=== PATIENT | female | born 1940 | race Caucasian/White ===

== ENCOUNTER → 2016-12-23 | Outpatient (CLI) | payer OTHER | LOC: FIMAGING 11:24 | DX: Z12.31 Encounter for screening mammogram for malignant neoplasm of breast (principal); Z85.3 Personal history of malignant neoplasm of breast | CPT/HCPCS: G0202-52 ==

== ENCOUNTER → 2017-12-26 | Outpatient (CLI) | payer OTHER, BC | LOC: FIMAGING 13:29 | PROVIDERS: ATTEND Family Medicine | DX: Z12.31 Encounter for screening mammogram for malignant neoplasm of breast (principal); Z85.3 Personal history of malignant neoplasm of breast; Z90.11 Acquired absence of right breast and nipple ==

== ENCOUNTER 2018-05-27 11:32 | Observation (INO) | payer OTHER, BC ==
--- NOTE | 2018-05-27 12:40 | EDPHY ---
H & P Stated Complaint: Lt arm numbness yesterday lasted approx 1 hour. No C/o today Time Seen by Provider: 05/27/18 12:27 HPI/ROS: Chief Complaint: Left arm numbness HPI: 77-year-old woman with no significant medical history had an episode 2 days ago of numbness in her left forearm and inability to use her left hand. This lasted for about 5 min. Started while she was vacuuming. She is right- handed. She then returned to normal. Patient had another episode yesterday which lasted about the same amount of time. She does not recall what she was doing at that time. She has not had any symptoms for the last 24 hr. She called her primary care physician's office who instructed her to come to the hospital. Patient states her grandfather of a stroke years ago. Denies any other medical history. Takes no medicines. No recent travel. No other numbness or weakness. No chest pain shortness of breath. No fevers or chills. No cough. ROS: 10 systems were reviewed and were negative except those elements noted in the HPI. PMH: Denies Social History: No smoking, occasional alcohol, no recreational drug use Family History: non-contributory Physical Exam: Gen: Awake, Alert, No Distress HEENT: Nose: no rhinorrhea Eyes: PERRLA, EOMI Mouth: Moist mucosa Neck: Supple, no JVD Chest: nontender, lungs clear to auscultation Heart: S1, S2 normal, no murmur Abd: Soft, non-tender, no guarding Back: no CVA tenderness, no midline tenderness Ext: no edema, non-tender Skin: no rash Neuro: CN II-XII intact, Sensation grossly intact, Strength 5/5 in bilateral upper and lower extremities, normal finger-nose, normal heel-valdes, no facial asymmetry - Personal History Current Tetanus/Diphtheria Vaccine: Yes Current Tetanus Diphtheria and Acellular Pertussis (TDAP): Yes - Medical/Surgical History Hx Asthma: No Hx Chronic Respiratory Disease: No Hx Diabetes: No Hx Cardiac Disease: No Hx Renal Disease: No Hx Cirrhosis: No Hx Alcoholism: No Hx HIV/AIDS: No Hx Splenectomy or Spleen Trauma: No Other PMH: Breast CA - Social History Smoking Status: Never smoked Constitutional: Initial Vital Signs Temperature (C) 36.7 C 09/08/18 11:39 Heart Rate 70 05/27/18 11:39 Respiratory Rate 16 05/27/18 11:39 Blood Pressure 171/85 H 05/27/18 11:39 O2 Sat (%) 93 05/27/18 11:39 O2 Delivery Mode Room Air Allergies/Adverse Reactions: No Known Allergies Allergy (Unverified 05/27/18 11:39) Home Medications: Medication Instructions Recorded Herbals/Supplements -Info Only 1 ea PO DAILY 05/27/18 Multivitamins [Multivitamin (*)] 1 each PO DAILY 05/27/18 Medical Decision Making - Diagnostics Imaging: Discussed imaging studies w/ mail caller Radiologist ED Course/Re-evaluation: CT scan is negative. Patient is asymptomatic. Discussed with Claudine Farrar, hospitalist. Will admit for further evaluation. She is requesting CT angiogram of the head neck. - Data Points Laboratory Results: Laboratory Results 05/27/18 11:35 05/27/18 11:35 Medications Given: Discontinued Medications Aspirin Buffered (Aspirin Ec) 325 mg PO DAILY [facility] Stop: 11/23/18 14:29 Last Admin: 05/27/18 17:35 Dose: Not Given Lisinopril (Zestril) 2.5 mg PO DAILY [facility] Stop: 11/23/18 16:44 Last Admin: 05/28/18 09:31 Dose: Not Given Multivitamins (Tab-A-Liang) 1 each PO DAILY [facility] Stop: 11/24/18 08:59 Last Admin: 05/28/18 09:31 Dose: Not Given Departure - Departure Disposition: [facility] Acute Clinical Impression: Transient cerebral ischemia Condition: Fair
[2018-05-27 12:47] LABS: PLATELET COUNT 253 10^3/uL (150-400)
[2018-05-27] MEDS ORDERED: IOPAMIDOL (ISOVUE 370) 100 ML BTL IV ONE (13:59)
[2018-05-27] MEDS ORDERED: ACETAMINOPHEN 325 MG TAB PO PRN (14:10)
[2018-05-27] MEDS ORDERED: ONDANSETRON 4 MG/2 ML VIAL IVP PRN (14:10)
[2018-05-27] MEDS ORDERED: ONDANSETRON DISINTEGRATING 4 MG TAB PO PRN (14:10)
[2018-05-27] MEDS ORDERED: ASPIRIN EC 325 MG TAB PO SCH (14:30)
--- NOTE | 2018-05-27 14:47 | PDGENHP ---
History and Physical - Chief Complaint Acute paresthesia - History of Present Illness Primary care provider: Dr. Kalpesh Lazar HPI: 77-year-old female presents with acute paresthesias characterized as unusual sensation located on the ventral aspect of her left forearm extending from the elbow to the wrist, with associated left hand paresis and difficulty moving digits 3 and 4. Patient reports onset of symptoms 2 days prior, duration of symptoms approximately 5 min. She reports it occurred while she was vacuuming and she does not recall sustaining any trauma to the left upper extremity or sleeping on improperly. After the resolution of symptoms, she re- experience them 1 day following that, and has been 24 hr since she has experienced symptoms at this time. She contacted her primary care provider office seeking an outpatient appointment, and she was instructed to come to the emergency department. She reports that she has never experienced these physical symptoms before, and she denies any posterior neck pain or headache. She does endorse that further past couple months she has experienced word- finding difficulty, pervasive enough that she is unable to recall the names of friends or places where she has lived. History Information - Allergies/Home Medication List Allergies/Adverse Reactions: No Known Allergies Allergy (Unverified 05/27/18 11:39) Home Medications: Aspirin [Aspirin 81mg (*)] 81 mg PO Q2D 05/27/18 [Last Taken 05/25/18] Herbals/Supplements -Info Only 1 ea PO DAILY 05/27/18 [Last Taken Unknown] Ibuprofen [Motrin (*)] 200 - 400 mg PO Q4-6PRN PRN 05/27/18 [Last Taken Unknown] Multivitamins [Multivitamin (*)] 1 each PO DAILY 05/27/18 [Last Taken Unknown] I have personally reviewed and updated: family history, medical history, social history, surgical history - Past Medical History hypertension Additional medical history: Skin cancer left side of nose. Breast cancer with radiation therapy 10 years ago - Surgical History Additional surgical history: Umbilical hernia repair - Family History Additional family history: Second-degree relative with stroke, no family history of myocardial infarction or cerebral aneurysms - Social History Smoking Status: Never smoked Alcohol Use: Occasionally Drug Use: None Additional social history: Lives independently, relocated to [place] from [place] 2 years ago to be closer to family Review of Systems Review of Systems: ROS: 10pt was reviewed & negative except for what was stated in HPI & below Neurological: Reports: other (Paresthesias and paresis left upper extremity, word-finding difficulty) Physical Exam Physical Exam: Temp Pulse Resp BP Pulse Ox 36.7 C 70 16 171/85 H 93 05/27/18 11:39 05/27/18 11:39 05/27/18 11:39 05/27/18 11:39 05/27/18 11:39 Constitutional: no apparent distress, appears nourished, not in pain Eyes: PERRL, anicteric sclera, EOMI Ears, Nose, Mouth, Throat: moist mucous membranes, hearing normal, ears appear normal, no oral mucosal ulcers Cardiovascular: regular rate and rhythym, no murmur, rub, or gallop, No carotid bruit, No edema Respiratory: no respiratory distress, no rales or rhonchi, clear to auscultation Gastrointestinal: normoactive bowel sounds, soft, non-tender abdomen, no palpable masses, No distension Genitourinary: no renal bruits Skin: No abrasion (Left upper extremity), No rash Musculoskeletal: other (Full range of motion left wrist and left elbow without any pain elicited) Neurologic: CN II-XII Intact, other (Subjective paresthesia ventral surface left upper extremity, alert awake oriented times 2, patient unable to say her location, demonstrates significant word-finding difficulty and distress with good insight), No weakness (Motor strength 5/5 bilateral upper and lower extremities) Psychiatric: interacting appropriately, not anxious, No agitated Lab Data & Imaging Review 05/27/18 11:35 05/27/18 11:35 WBC 5.17 10^3/uL (3.80-9.50) 05/27/18 11:35 RBC 5.14 10^6/uL (4.18-5.33) 05/27/18 11:35 Hgb 15.3 g/dL (12.6-16.3) 05/27/18 11:35 Hct 44.5 % (38.0-47.0) 05/27/18 11:35 MCV 86.6 fL (81.5-99.8) 05/27/18 11:35 MCH 29.8 pg (27.9-34.1) 05/27/18 11:35 MCHC 34.4 g/dL (32.4-36.7) 05/27/18 11:35 RDW 13.3 % (11.5-15.2) 05/27/18 11:35 Plt Count 253 10^3/uL (150-400) 05/27/18 11:35 MPV 8.8 fL (8.7-11.7) 05/27/18 11:35 Neut % (Auto) 66.7 % (39.3-74.2) 05/27/18 11:35 Lymph % (Auto) 22.8 % (15.0-45.0) 05/27/18 11:35 [place] % (Auto) 6.8 % (4.5-13.0) 05/27/18 11:35 Eos % (Auto) 2.5 % (0.6-7.6) 05/27/18 11:35 Baso % (Auto) 0.8 % (0.3-1.7) 05/27/18 11:35 Nucleat RBC Rel Count 0.0 % (0.0-0.2) 05/27/18 11:35 Absolute Neuts (auto) 3.45 10^3/uL (1.70-6.50) 05/27/18 11:35 Absolute Lymphs (auto) 1.18 10^3/uL (1.00-3.00) 05/27/18 11:35 Absolute Monos (auto) 0.35 10^3/uL (0.30-0.80) 05/27/18 11:35 Absolute Eos (auto) 0.13 10^3/uL (0.03-0.40) 05/27/18 11:35 Absolute Basos (auto) 0.04 10^3/uL (0.02-0.10) 05/27/18 11:35 Absolute Nucleated RBC 0.00 10^3/uL (0-0.01) 05/27/18 11:35 Immature Gran % 0.4 % (0.0-1.1) 05/27/18 11:35 Immature Gran # 0.02 10^3/uL (0.00-0.10) 05/27/18 11:35 Sodium 140 mEq/L (135-145) 05/27/18 11:35 Potassium 4.5 mEq/L (3.3-5.0) 05/27/18 11:35 Chloride 104 mEq/L (97-110) 05/27/18 11:35 Carbon Dioxide 28 mEq/l (22-31) 05/27/18 11:35 Anion Gap 8 mEq/L (8-16) 05/27/18 11:35 BUN 24 mg/dL (7-23) H 05/27/18 11:35 Creatinine 0.9 mg/dL (0.6-1.0) 05/27/18 11:35 Estimated GFR 60 05/27/18 11:35 Glucose 88 mg/dL (70-100) 05/27/18 11:35 Calcium 10.1 mg/dL (8.5-10.4) 05/27/18 11:35 Visualized and Interpreted imaging results: Yes Interpretation: Head CT demonstrating atrophy, no previous CVA Assessment & Plan Assessment: 77-year-old female presents with acute paresthesias and paresis suggestive of TIA versus CVA Plan: 1. Paresis and paresthesia. Acute, new problem this provider, further workup indicated. Potential diagnoses include TIA versus CVA versus a posterior cervical cord compression, given the patient's present and persistent nature of word-finding difficulties, I suspect the patient may have experienced subacute CVA, but dementia is also within the differential, particularly if she were to have vascular dementia -patient declined head CT with IV contrast but she has elected for MRA of head and neck, MRI -she is agreeable to echocardiogram -lipid panel, hemoglobin A1c -monitor on telemetry given potential for predisposing AFib, with patient reporting a history of right chest palpitations evaluated by her PCP but no formal cardiology evaluation the outpatient setting -aspirin 325 -get neuro consultation tomorrow after above studies obtained 2. High blood pressure. Patient denies history of hypertension, her systolic blood pressure is currently 170, will monitor, may be elevated in the setting of CVA Diet. Regular after swallow eval Prophylaxis. High risk patient, SCDs, hold pharm given possible CVA Code. Full Disposition. Anticipated discharge is 05/28, pending further workup of above. Patient's case discussed with Dr. Federico Laguerre, he and I both agree that further neurovascular workup is appropriate.
[2018-05-27] MEDS ORDERED: GADOBUTROL 10 ML VIAL IVP ONE (15:10)
[2018-05-27] MEDS: LISINOPRIL 2.5 MG TAB PO SCH (17:30)
--- NOTE | 2018-05-27 20:50 | CPEKG ---
Test Reason : OPEN Blood Pressure : / mmHG Vent. Rate : 074 BPM Atrial Rate : 063 BPM P-R Int : 212 ms QRS Dur : 113 ms QT Int : 428 ms P-R-T Axes : 071 057 023 degrees QTc Int : 475 ms Sinus rhythm Ventricular premature complex Borderline prolonged MO interval Probable left atrial enlargement Nonspecific T abnormalities, anterior leads Nonspecific intraventricular conduction delay Confirmed by Rishi White ([id number]) on 05/27/2018 8:50:25 PM Referred By: Confirmed By:Rishi White
[2018-05-28 08:41] VITALS: BP 132/71
[2018-05-28] MEDS ORDERED: Herbals/Supplements -Info Only PO SCH (09:00)
[2018-05-28] MEDS ORDERED: MULTIVITAMINS 1 EACH TAB PO SCH (09:00)
[2018-05-28] MEDS: LISINOPRIL 2.5 MG TAB PO SCH (09:31)
--- NOTE | 2018-05-28 11:11 | PDCONSULT ---
[facility] Worker Note: PATIENT LEFT AGAINST MEDICAL ADVICE (AMA) BECAUSE OF THIS, I WAS UNABLE TO EVALUATE HER
--- NOTE | 2018-05-28 11:42 | GCON ---
DATE OF CONSULTATION: 05/28/2018 REASON FOR CONSULTATION: Acute paraesthesias and confusion, with new cranial petechial hemorrhages noted. HOSPITAL COURSE/HISTORY/MAJOR MEDICAL FINDINGS: The patient is a 77-year-old female, from whom some of this has been taken from the patient's medical record as the patient has had some confusion this morning and states that she does not fully understand why she was asked to come to the hospital. Per her record, the patient was having some acute paresthesias in her left arm extending from her elbow to her wrist. This had been going on for approximately 2 days prior, and each time it would last about 5 minute. She states that this would occur when she was vacuuming and she denied any trauma. The patient does state that she contacted her primary care physician, and she was then directed to come to the emergency room. She had never experienced any arm numbness, tingling or pain prior to this. She denies any neck pain. She has also noticed that she has been having some word-finding difficulty. The patient denies any headaches , nausea, vomiting, or dizziness this morning. REVIEW OF SYSTEMS: Review of systems is negative other than what is stated in the HPI. Please see pertinent negatives and positives. HOME MEDICATIONS: Include aspirin, herbal supplements, ibuprofen, multivitamin. ALLERGIES: No known drug allergies. FAMILY HISTORY: Most of her family lives in [place]. She denies any history of cancer or diabetes. She does have someone in her family that has had a prior stroke. PAST SURGICAL HISTORY: The patient states that she had skin cancer removed from her nose recently and had an umbilical hernia repair. PAST MEDICAL HISTORY: Significant for the skin cancer as well as breast cancer with radiation and hypertension. SOCIAL HISTORY: The patient is originally from [facility] but she now lives independently here in [place]. She has never smoked and she has an occasional alcoholic beverage. PHYSICAL EXAMINATION: VITAL SIGNS: BP is 132/71, heart rate is 87, she is 91% on room air, temperature is 37.7. GENERAL: The patient is in no acute distress. She is alert and she is oriented to year, but throughout the conversation with the patient, she does perseverate and is not able to fully recall the full reason that she was sent to the hospital nor some detailed history questionnaires. She had tried to order breakfast; however, she states that when she called for breakfast that they were closed. All of her statements are not fully appropriate. HEENT: CHRISTO. EOMI. EXTREMITIES: The patient is a 5/5 and equal in her bilateral upper and bilateral lower extremities including her deltoids, triceps, biceps, wrist flexors, extensors, interossei, intrinsic baseball coach, iliopsoas, hamstrings, quadriceps, plantar flexion, dorsiflexion, and EHL. DIAGNOSTIC REVIEW: The patient underwent a head CT which demonstrated no acute hemorrhage or intracranial abnormality; there is atrophy and nonspecific white matter disease. There was evidence of a perivascular space versus old lacunar infarct present within the right basal ganglia. There was minimal focal encephalomalacia involving the low left paramedian frontal lobe. Brain MRI demonstrated multiple diffuse bilateral cerebral hemodesrin deposits consistent with subacute to old subarachnoid hemorrhages and cortical hemorrhages which may be relative to amyloid angiopathy. There is severe microvascular gliosis and moderate cerebral atrophy. MRA of the brain demonstrated findings that were consistent with the prior MRI. There was no evidence of aneurysm, vascular malformation, or flow-limiting stenosis or occlusion. Cervical MRA was also negative for any flow-limiting stenosis, occlusion or dissection. ASSESSMENT AND PLAN: The patient is a 77-year-old female who presented with some left arm intermittent paresthesias that would come and go. She is not having any of that this morning; she does have some confusion, however, that was noted throughout my lengthy conversation with the patient. There is evidence of some hemodesrin spots on her MRI which may be consistent with an amyloid angiopathy per the radiology reports. The patient was seen both by Dr. Armendariz and myself. At this point in time, there is no acute neurosurgical etiology, no acute neurosurgical treatment recommended; would recommend neurology evaluation for further workup. PT, OT, and SUSHI CHEF cog evaluations. The patient was seen by both Dr. Armendariz and myself. /[id number]/MODL MTDD
--- NOTE | 2018-05-28 16:08 | PDDCSUM ---
Discharge Summary Discharge Summary: DISCHARGE SUMMARY FOLLOW-UP ITEMS: 1. Perform mini-mental status exam as an outpatient PCP office 2. Recommend driving exam and suspension of license until patient is able to perform 2. Recommend outpatient neurology consultation DATE OF ADMISSION: 05/27/2018 DATE OF DISCHARGE: 05/28/2018 DISCHARGE DIAGNOSES: 1. 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 Acute paresis, paresthesia, word-finding difficulties CONSULTATIONS: Neurosurgery, patient left prior to Neurology consultation PROCEDURES / IMAGING: Brain MRI demonstrating diffuse bilateral hemosiderin deposits potentially consistent with subacute or old subarachnoid hemorrhages without acute CVA MRA of head and neck demonstrating no cerebral aneurysms CHIEF COMPLAINT: Acute left upper extremity paresthesias and paresis with word-finding difficulty SUBJECTIVE: Patient became very distressed and paranoid, leaving against medical advice prior to neurology exam PHYSICAL EXAM ON DISCHARGE: Systolic blood pressure 130, heart rate 80, afebrile overnight, satting on room air, alert awake oriented times [address] and time but requiring prompting and demonstrating a very circuitous way of arriving at her answers; she has obvious word-finding difficulty, unable to name her address or City where she lives, but able to problem solve by getting into her purse and locating the address in 1 of her pocket books; moving all 4 extremities; facial symmetry; labile emotions, seemingly paranoid, but demonstrates linear and directable thinking LABS ON DISCHARGE: LDL 124, A1c pending at time of discharge HOSPITAL COURSE BY PROBLEM: The patient presented with left upper extremity paresis and paresthesias of abrupt onset 3 days prior to presentation. She also reported word-finding difficulty which has been present for at least a month. She attempted to see her primary care provider, but was triaged to the emergency department for evaluation. The patient initially underwent a TIA versus CVA workup, and brain MRI demonstrated diffuse bilateral hemosiderin deposits potentially consistent with subacute or old subarachnoid hemorrhages. MRA of the head and neck were otherwise unremarkable. She was monitored on neuro checks, which demonstrated resolution of her paresthesias and paresis, but persistence of her word-finding difficulty as well as development of paranoia and distress out of proportion to the patient's situation. She became increasingly agitated and demanded to be discharged. I evaluated the patient and after an extensive conversation, I felt like she did have the capacity to make rational decisions, although her word-finding difficulty was present and pervasive on exam, revealing that she did have intact problem solving capabilities, as she would look for the words or answers to questions on collateral material such as her pocketbook which was in her purse. At the time of my evaluation, the patient was cooperative and agreed to a Neurology consultation prior to discharge, as I shared with her the diagnosis of subacute subarachnoid hemorrhages which could either be secondary to amyloid angiopathy verses vasculitis, as suggested by Neurosurgery. Assured with the patient that there was no recommended neurosurgical intervention, but that neurology evaluation was necessary to help her determine the next best steps. After agreeing to this consultation prior to discharge, the patient then subsequently decided to leave against medical advice, prior to the Neurology evaluation. My suspicion is that the patient has an amyloid angiopathy resulting in subacute subarachnoid hemorrhages, resulting in her aforementioned neurologic and personality symptoms. The patient endorsed that she has a sister in [facility] who has very similar symptoms, and it is certainly possible that there may be a genetic component. Although vasculitis is within the differential, the patient's normal CBC makes this diagnosis somewhat less likely. That said, she should have inflammatory markers and workup in the outpatient setting, if she is amenable to outpatient neurology consultation. She should also have close outpatient follow-up with a mini-mental status exam and consideration for the involvement of Adult protection Services if the patient decompensates further and appears to be unable to manage her situation independently. I would highly recommend the patient not be driving a motorized vehicle for her own safety and that of others, as she is at risk for losing her way and becoming easily overwhelmed. I would also highly recommend the patient stop taking aspirin every other day, as she does not have an absolute indication for this medication and she is at risk for worsening intracranial bleeding. It should be noted that I was unable to provide the patient with some of these aforementioned recommendations, as my intention had been to continue my conversation with the patient after she had been seen by Neurology, which was consultation she had agreed to during our encounter. Consequently, I recommend that the patient's primary care provider office reach out to the patient immediately to arrange outpatient follow-up and crisis intervention counselor her on these recommendations. DISCHARGE MEDICATIONS: Please see official discharge medication reconciliation sheet in chart , continue home medications with the exception of aspirin. DISCHARGE INSTRUCTIONS: Please follow up with her primary care provider as soon as possible.
== END 2018-05-28 10:31 | disposition left against medical advice (07) ==
LOC: EDUNIT# → F3N 16:19
PROVIDERS: ADMIT Internal Medicine; ATTEND Internal Medicine
DX: I60.7 Nontraumatic subarachnoid hemorrhage from unspecified intracranial artery (principal); G83.24 Monoplegia of upper limb affecting left nondominant side; R20.2 Paresthesia of skin; R41.841 Cognitive communication deficit; I10 Essential (primary) hypertension
CPT/HCPCS: 70450; 70544; 70549; 70551; 93005; 97161; 99285; A9585; G0378; G8978; G8979; G8980; Q9967

== ENCOUNTER 2018-05-29 17:45 | Observation (INO) | payer OTHER, BC ==
[2018-05-29 18:15] LABS: PLATELET COUNT 239 10^3/uL (150-400)
--- NOTE | 2018-05-29 18:38 | EDPHY ---
H & P Time Seen by Provider: 05/29/18 18:05 HPI/ROS: Chief complaint. Numbness HPI. Patient is 77-year-old female who with complaint of left arm, left fingers , tongue with altered sensation and numbness beginning at about 5:00 p.m. Today. It lasted maybe 1 hr. Symptoms have resolved. She thinks she was clumsy with her left hand and could not make a fist or worker seatbelt. Her son noted that her speech seemed to be slurred. She had no leg symptoms. No chest discomfort or trouble breathing. No abdominal pain. Patient was admitted for left arm numbness 2 days ago. She had a normal head C T. Brain MRI showed subacute to old subarachnoid hemorrhage and cortical hemorrhage but nonacute. There was also severe microvascular ischemic gliosis. Her head MRA was negative for the washoe of [place]. Her neck MRA showed no stenosis. She was evaluated by Neurosurgery who felt there was no need for neurosurgical intervention. Neurology consult was ordered however the patient left AMA prior to neurology evaluation. Discharge diagnosis was amyloid angiopathy and sub acute subarachnoid hemorrhages. She has no symptoms now ROS Constitutional. no fever/chills, no weakness Eyes. no problems with vision ENT. no sore throat, no nasal drainage Cardiovascular. no chest pain Respiratory. no shortness of breath, no cough Abdominal. no abdominal pain, no nausea/vomiting, no diarrhea . no problems urinating MS. no calf pain/swelling, no neck/back pain, no joint pain Skin. no rash Lymph. no swollen glands Neuro. Left arm and fingers and time numbness and potential weakness with the left hand Past Medical/Surgical History: Past medical history breast cancer, right mastectomy, TIA Social History: Single, nonsmoker, no alcohol Smoking Status: Never smoked Physical Exam: General Appearance: Alert pleasant well-developed female mild distress vital signs significant for blood pressure 167/107 Eyes: Pupils equal and round no pallor or injection. ENT, Mouth: Mucous membranes are moist. Respiratory: There are no retractions, lungs are clear to auscultation. Cardiovascular: Regular rate and rhythm. Gastrointestinal: Abdomen is soft and nontender, no masses, bowel sounds normal. Neurological: Awake and alert, sensory and motor exams grossly normal. No facial numbness now. Speech is normal. Cranial nerves are intact. There is no pronator drift. Jiliil-lv-yuce and vzpb-yp-[id number] are intact bilaterally Skin: Warm and dry, no rashes. Musculoskeletal: Neck is supple nontender. Extremities symmetrical, full range of motion. Psychiatric: Patient is oriented X 3, there is no agitation. Constitutional: Initial Vital Signs Temperature (C) 37.0 C 05/29/18 17:53 Heart Rate 67 05/29/18 17:53 Respiratory Rate 16 05/29/18 17:53 Blood Pressure 167/107 H 05/29/18 17:53 O2 Sat (%) 97 05/29/18 17:53 O2 Delivery Mode Room Air Allergies/Adverse Reactions: No Known Allergies Allergy (Unverified 05/27/18 11:39) Home Medications: Medication Instructions Recorded Herbals/Supplements -Info Only 1 ea PO DAILY 05/27/18 Multivitamins [Multivitamin (*)] 1 each PO DAILY 05/27/18 Aspirin 05/29/18 Medical Decision Making - Diagnostics EKG Interpretation: EKG interpreted by me shows normal sinus rhythm normal interval and axis. QRS is normal there is no significant ST elevation or depression. No arrhythmia. The rate is 66 Imaging Results: Imaging Impressions Head CT 05/29/18 18:38 Impression: Ventricular and deep hemispheric white matter change, which is stable in appearance and can be seen with small vessel ischemic disease. 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 No definite acute findings. Results called and discussed with Kris Bran M.D., on May 29, [address] reviewed by me and discussed with Dr. Jaramillo shows the no acute infarct or hemorrhage. Similar to 2 days ago. Procedures: IV normal saline, monitor ED Course/Re-evaluation: Re-evaluation 7:25 p.m. Patient again has facial and left arm numbness. I can' t demonstrate weakness. She also complains of some numbness and pain to her chest. I consulted discussed case with Dr. Gallagher for Neurology who agrees with admission and he will see the patient in consultation. He recommends no aspirin currently. He recommends gabapentin 300 mg. I consulted and discussed the case with Dr. Pardo, hospitalist, who agrees to the admission I have discussed imaging and lab results with the patient and her son. We discussed treatment plan including recommendation for admission. They expressed understanding Differential Diagnosis: Patient with TIA type symptoms 2 days ago and workup showing subacute subarachnoid hemorrhages. Patient left AMA prior to Neurology evaluation. Returns today with stuttering and continuing symptoms. No evidence for acute hemorrhage - Data Points Laboratory Results: Laboratory Results 05/29/18 17:45 05/29/18 17:45 05/29/18 05/29/18 05/29/18 19:22 18:06 17:45 WBC RBC Hgb POC Hgb 14.3 gm/dL gm/dL (12.6-16.3) Hct POC Hct 42 % % (38-47) MCV MCH MCHC RDW Plt Count MPV Neut % (Auto) Lymph % (Auto) Posey % (Auto) Eos % (Auto) Baso % (Auto) Nucleat RBC Rel Count Absolute Neuts (auto) Absolute Lymphs (auto) Absolute Monos (auto) Absolute Eos (auto) Absolute Basos (auto) Absolute Nucleated RBC Immature Gran % Immature Gran # PT INR POC Sodium 140 mEq/L mEq/L (135-145) Sodium 137 mEq/L mEq/L (135-145) POC Potassium 4.0 mEq/L mEq/L (3.3-5.0) Potassium 4.4 mEq/L mEq/L (3.3-5.0) POC Chloride 105 mEq/L mEq/L (97-110) Chloride 102 mEq/L mEq/L (97-110) Carbon Dioxide 26 mEq/l mEq/l (22-31) Anion Gap 9 mEq/L mEq/L (8-16) POC BUN 23 mg/dL mg/dL (7-23) BUN 23 mg/dL mg/dL (7-23) Creatinine 0.9 mg/dL mg/dL (0.6-1.0) POC Creatinine 1.0 mg/dL mg/dL (0.6-1.0) Estimated GFR 60 Glucose 90 mg/dL mg/dL (70-100) POC Glucose 90 mg/dL mg/dL (70-100) Calcium 9.5 mg/dL mg/dL (8.5-10.4) POC Troponin I 0.00 ng/mL ng/mL (0.00-0.08) 05/29/18 05/29/18 17:45 13:55 WBC 5.20 10^3/uL 10^3/uL (3.80-9.50) RBC 4.93 10^6/uL 10^6/uL (4.18-5.33) Hgb 14.3 g/dL g/dL (12.6-16.3) POC Hgb Hct 43.2 % % (38.0-47.0) POC Hct MCV 87.6 fL fL (81.5-99.8) MCH 29.0 pg pg (27.9-34.1) MCHC 33.1 g/dL g/dL (32.4-36.7) RDW 13.3 % % (11.5-15.2) Plt Count 239 10^3/uL 10^3/uL (150-400) MPV 8.5 fL L fL (8.7-11.7) Neut % (Auto) 58.0 % % (39.3-74.2) Lymph % (Auto) 30.4 % % (15.0-45.0) Posey % (Auto) 7.3 % % (4.5-13.0) Eos % (Auto) 3.1 % % (0.6-7.6) Baso % (Auto) 1.0 % % (0.3-1.7) Nucleat RBC Rel Count 0.0 % % (0.0-0.2) Absolute Neuts (auto) 3.02 10^3/uL 10^3/uL (1.70-6.50) Absolute Lymphs (auto) 1.58 10^3/uL 10^3/uL (1.00-3.00) Absolute Monos (auto) 0.38 10^3/uL 10^3/uL (0.30-0.80) Absolute Eos (auto) 0.16 10^3/uL 10^3/uL (0.03-0.40) Absolute Basos (auto) 0.05 10^3/uL 10^3/uL (0.02-0.10) Absolute Nucleated RBC 0.00 10^3/uL 10^3/uL (0-0.01) Immature Gran % 0.2 % % (0.0-1.1) Immature Gran # 0.01 10^3/uL 10^3/uL (0.00-0.10) PT 14.1 SEC SEC (12.0-15.0) INR 1.07 (0.83-1.16) POC Sodium Sodium POC Potassium Potassium POC Chloride Chloride Carbon Dioxide Anion Gap POC BUN BUN Creatinine POC Creatinine Estimated GFR Glucose POC Glucose Calcium POC Troponin I Point of Care Test Results: Chemistry 05/29/18 05/29/18 19:22 18:06 POC Sodium 140 mEq/L mEq/L (135-145) POC Potassium 4.0 mEq/L mEq/L (3.3-5.0) POC Chloride 105 mEq/L mEq/L (97-110) POC BUN 23 mg/dL mg/dL (7-23) POC Creatinine 1.0 mg/dL mg/dL (0.6-1.0) POC Glucose 90 mg/dL mg/dL (70-100) POC Troponin I 0.00 ng/mL ng/mL (0.00-0.08) ISTAT H&H 05/29/18 18:06 POC Hgb 14.3 gm/dL gm/dL (12.6-16.3) POC Hct 42 % % (38-47) Departure - Departure Disposition: [facility] Inpatient Acute Clinical Impression: Paresthesia Condition: Fair Referrals: Kalpesh Lazar DO [Primary Care Provider] - As per Instructions
[2018-05-29 19:37] LABS: INR 1.07 (0.83-1.16); PROTIME(PATIENT) 14.1 SEC (12.0-15.0)
[2018-05-29] MEDS ORDERED: GABAPENTIN 300 MG CAP PO ONE (19:44)
[2018-05-29] MEDS ORDERED: NS 1,000 ML IV SCH (20:15)
--- NOTE | 2018-05-29 22:11 | CPEKG ---
Test Reason : OPEN Blood Pressure : / mmHG Vent. Rate : 066 BPM Atrial Rate : 066 BPM P-R Int : 221 ms QRS Dur : 103 ms QT Int : 411 ms P-R-T Axes : 066 043 014 degrees QTc Int : 431 ms Sinus rhythm Prolonged NV interval Probable left atrial enlargement Confirmed by Tamia Gonzalez ([id number]) on 05/29/2018 10:11:00 PM Referred By: Confirmed By:Tamia Gonzalez
[2018-05-29] MEDS ORDERED: ZOLPIDEM TARTRATE 5 MG TAB PO PRN (23:19)
[2018-05-29] MEDS ORDERED: ACETAMINOPHEN 325 MG TAB PO PRN (23:19)
[2018-05-29] MEDS ORDERED: ONDANSETRON 4 MG/2 ML VIAL IVP PRN (23:19)
--- NOTE | 2018-05-29 23:38 | PDGENHP ---
History and Physical History and Physical: CC: Numbness in left arm and in left tongue HISTORY: This patient comes into the emergency room today complaining of an episode of now resolved numbness in her left arm and hand and left tongue. She actually had been admitted here 2 days ago with pretty much identical symptoms that had resolved. There were 2 episodes on that day of similar symptoms. There was no headache, no cardiac symptoms and no significant findings on exam. She had examination including CT scan head MRI of the brain MR angio of head and neck. The most concerning finding at the time on imaging was evidence of several subacute and/or chronic small hemorrhage areas in the brain, raising a question of possible amyloid angiopathy or other cause. There was atrophy but no acute ischemia or other acute changes. The patient was seen by Neurosurgery who did not feel there is a neurosurgical issue. She was to be seen by Neurology but the patient left against medical advice before being seen by neurologist. There were no changes in her medications. The patient does clinically take an aspirin a day. While out shopping with her son today in a grocery store the patient had onset of the same left arm and hand numbness and left tongue numbness. It is not possible for me to clarify from talking is patient whether there was actually any weakness but as best I can tell there was no actual weakness in the hand or arm. It sounds like the son was concerned that her speech did not sound quite normal, somewhat slurred, but the patient does not recall having any change in the sound of her voice or any other difficulty speaking. She tells me that today's episode as well as the episodes 2 days ago all lasted several minutes meaning 10-15 minutes, with then complete resolution. Again today she denies headache, change in vision, confusion, palpitations, fever symptoms, or other associated changes. She gives no prior history of stroke or TIA. She describes what sounds like 1 past episode of peripheral vertigo that was successfully treated with Santhosh maneuvers. ROS: A comprehensive 10 system review revealed no other significant findings PAST MEDICAL HISTORY: Peripheral vertigo Breast cancer status post radiation 10 years out Umbilical hernia repair Basal cell cancer of the nose FAMILY MEDICAL HISTORY: Second-degree relative with a stroke but no other family history of cardiac vascular or cerebrovascular disease SOCIAL HISTORY: Lives alone, has family in the area No tobacco alcohol or street drugs MEDICATIONS: The patients list has been reconciled by our clinical pharmacist in the EMR. I have reviewed the list and ordered appropriate medicines. PHYSICAL EXAMINATION: Vital Signs: Mildly hypertensive otherwise normal Business Solutions Consultant: Sinus Examination: General: alert, oriented, good mentation, relaxed Skin: warm, dry, good color, no rash HEENT: normal Neck: no mass or jvd Resps: relaxed Lungs: clear breath sounds Heart: regular, no murmur Abdomen: soft, nondistended, nontender, +BS, no mass Upper Extremities: normal Lower Extremities: no edema, warm No Bleeding or bruising Neurologic: No numbness or loss of sensation demonstrable on examination anywhere at this time; normal speech/language, normal bladder trimmer, no focal weakness, no pronator drift, no abnormal reflexes IV site: looks normal LABORATORY DATA: Unremarkable CBC and metabolic panel Normal troponin RADIOLOGY STUDIES: I reviewed images of her CT scan of the head today along with radiologist report. There is atrophy and some microvascular gliosis. 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 I reviewed the images of her brain MRI from 2 days ago. I do not see anything that looks like acute ischemia. I do see the areas of hemosiderin deposit mentioned by the radiologist from this study. 12 LEAD EKG: I reviewed her ER EKG tracing today, shows sinus rhythm with first-degree AV block, nonischemic ASSESSMENT: * recurrent episode of acute left-sided numbness resolved; unremarkable neurologic exam at this time * subacute to chronic hemosiderin deposits suggesting small hemorrhages, question amyloid angiopathy or other cause * no evidence of acute stroke on today's CT scan or on previous images 2 days ago with CTs and MRs * no evidence of vascular abnormalities amenable to any interventions based on MR angios from 2 days ago * LDL cholesterol 124 The cause of her episodes is uncertain. At this point I will need neurologic assessment and Dr. Fernandes is where the patient and will see her in consultation. At this time he is recommending that we not start aspirin until he has a chance to look at her examination, study her symptoms and her imaging. PLANS: * Observation status on stroke unit * Dr. Fernandes will consult on the patient * Will start some statin for her hyperlipidemia at this time * Hold on aspirin therapy until seen by Dr. Fernandes * Cardiac EKG monitoring * Follow blood pressures closely * Therapy evaluations * As her symptoms has resolved and are swallow assessment here at the bedside looks good will allow her to eat at this time I have reviewed the patient's case in detail with Dr. Kris Bran I have reviewed the patient's past medical records as part of this assessment, including previous hospital admission records
[2018-05-30] MEDS ORDERED: MULTIVITAMINS 1 EACH TAB PO SCH (09:00)
[2018-05-30] MEDS ORDERED: ENOXAPARIN 40 MG/0.4 ML SYR SC SCH (09:00)
[2018-05-30] MEDS ORDERED: MAGNESIUM OXIDE 400 MG TAB PO SCH (09:00)
[2018-05-30] MEDS ORDERED: ATORVASTATIN CALCIUM 10 MG TAB PO SCH (09:00)
--- NOTE | 2018-05-30 11:18 | NEUROPROG ---
Assessment: Maria [id number] - Neurology Consult: - CC: Altered Sensation in Left face/arm - HPI: Pt had two episodes (05/27/18 and 05/29/18) of transient left face and arm numbness that resolved in 10-15 minutes. She was admitted on 05/27/18 for her initial episode but left the hospital AMA before neurology evaluation occurred. Evaluation at that time included brain MRI and MRA which showed no acute stroke or bleed but did show old hemorrhages concerning for amyloid angiopathy. She was seen by neurosurgery at that time who did not find any neurosurgical needs. She denied headache or cardiac symptoms. Neurologic exam on 05/30/18 was nonfocal and unremarkable. She has not had any return of her symptoms since admission. I felt it was likely she had amyloid angiopathy which had caused prior hemorrhages and this likely caused an underlying brain injury predisposing her to paresthesias of her left face and arm. I recommend a trial of gabapentin 300 mg qhs for symptom control and f/u in the neurology clinic in 1-4 weeks to assess response. - PMHx: peripheral vertigo, BRCA post radiation, umbilical hernia, basal cell cancer of the nose - SHx: no tobacco FHx: stroke - ROS: Pt denied acute fever, total vision loss, active severe chest pain, respiratory failure, total body severe rash, total bowel/bladder incontinence, psychosis, active seizures, or active bleeding - O: VS reviewed General: Alert Eyes: Fundoscopic exam not able to visualize optic disks CV: Heart RRR, no murmur, no carotid bruit Lungs: Clear to auscultation bilaterally, no rhonchi or rales Neuro: - Mental: . Oriented x person/place/date . concentration appears normal . speech fluency/comprehension normal . memory appears normal . fund of knowledge appear intact - Cranial Nerves: . II: PERRL, VFFTC . III/IV/: EOMI, no nystagmus, normal smooth pursuits, no Ptosis . V: facial sensation intact to LT . VII: face symmetric to eye closure and smile . VIII: hearing intact to conversation . IX/X: uvula raises symmetrically . XI: SCM 5/5 B/L strength . XII: tongue protrudes midline w/nl strength - Motor: . Tone: normal tone in all 4 extremity . Strength: no pronator drift, strength 5/5 throughout (B/L delt, bic, tri, hand spindle maker, hf/he, df/pf) - Reflexes: B/L bic 2/4 - Sensory: all 4 extremity intact to light touch - Coord: [id number]-[id number] wnl, TAMARA wnl, [id number] wnl - Gait: deferred - Labs: 05/28/18- LDL 124, H1AC 5.4 05/29/18- CBC wnl, INR 1.07, Chem wnl, - Rads: 05/27/18- Brain MRI w/o con: Multiple diffuse bilateral cerebral hemosiderin deposits consistent with subacute to old subarachnoid hemorrhages and cortical hemorrhages, which may be related to amyloid angiopathy among other etiologies; no acute stroke, mod atrophy, severed CMVD - 05/27/18- Brain/Neck MRA: unremarkable - 05/29/18- Head CT: no acute bleed or other acute changes (I personally visualized the images on 05/30/18) - Assessment: 1. Recurrent episodes of left face/arm numbness: Pt had two episodes (05/27/18 and 05/29/18) of transient left face and arm numbness that resolved in 10-15 minutes. Brain MRI and MRA on 05/27/18 showed no acute stroke or bleed but did show old hemorrhages concerning for amyloid angiopathy. Neurologic exam on 05/30 was nonfocal and unremarkable. I felt it was likely she had amyloid angiopathy which had caused prior hemorrhages and this likely caused an underlying brain injury predisposing her to paresthesias of her left face and arm. - 2. Probably Amyloid Angiopathy: Brain MRI w/o con on 05/27/18 showed Multiple diffuse bilateral cerebral hemosiderin deposits consistent with subacute to old subarachnoid hemorrhages and cortical hemorrhages, which may be related to amyloid angiopathy among other etiologies; brain/neck MRA unremarkable for vascular abnormalities so amyloid angiopathy seems the most likely cause for her MRI findings; Treatment is supportive and avoiding things that increase bleed risk if possible. Patient has seen neurosurgery in 05/27/18 and nothing was recommended for additional therapy. Cerebral Amyloid Angiopathy is a risk factor for dementia. - Plan: - Trial of gabapentin 300 mg qhs for left face/arm paresthesias - TTE to ensure no cardiac thrombus - No further neurologic w/u needed at this time so neurology will sign off - F/U in neurology clinic in 1-4 weeks to assess response Objective: Vital Signs Temp Pulse Resp BP Pulse Ox 36.6 C 68 16 124/97 H 91 L 05/30/18 07:35 05/30/18 07:35 05/30/18 07:35 05/30/18 07:35 05/30/18 07:35 PT 14.1 SEC (12.0-15.0) 05/29/18 13:55 INR 1.07 (0.83-1.16) 05/29/18 13:55 Allergies/Adverse Reactions: No Known Allergies Allergy (Verified 05/29/18 20:08)
[2018-05-30 11:43] VITALS: BP 123/68
--- NOTE | 2018-05-30 14:38 | ASMTCMCOM ---
CM Note CM Note Notes: PT rec home, MANAGER MEDIA/OT evals pending. Pt left AMA from ED 05/28. CM spoke with pt about d/c planning, she reports she wants to d/c independent declines meals on wheels or senior resources. Pt son resides close to her, drives her and checks in on her. CM will follow. Date Signed: 05/30/2018 02:37 PM Electronically Signed By:RIA Yap
--- NOTE | 2018-05-30 15:45 | GDS ---
DIAGNOSES: 1. Left face and arm numbness, recurrent. 2. Peripheral vertigo. 3. Breast cancer, status post radiation many years ago. 4. Possible cognitive decline. CONSULTATIONS: Neurology, Dr. Tutu Fernandes PROCEDURES DONE: CT of the head without contrast showing no acute bleeding. HOSPITAL COURSE: The patient is a 77-year-old woman who was recently admitted here for similar compl aint. She had a full evaluation from a neurologic standpoint; however, at that time, it was felt she may have some amyloid angiography causing some mild bleeding as a source of her left arm numbness. Neurosurgical felt that there is no acute issue to address and before Neurology was able to evaluate her, she left AMA. She returns today with similar complaints. It was felt that a re-evaluation was not indicated; however, we did do an echocardiogram, which was not done prior that was normal. Neuro logy was able to see her before she left today and felt that again this is likely related to her prev ious episode and does not represent a new stroke or TIA. Dr. Fernandes will follow up with her as an outp attrihealth. He recommends we start atorvastatin and gabapentin daily. He does not recommend aspirin giv en her history of amyloid angiopathy. Patient has been stable throughout her stay here. She has had no recurrent symptoms; however, she is quite paranoid and had difficulty understanding our treatment plan. I did discuss this with her son , who felt that she was at baseline and that [place]ic is her second language, and she has always been somewhat paranoid. Dr. Fernandes would be happy to follow up with her as an outpatient regarding her cogn itive issues, as well as the neurologic issues. CONDITION ON DISCHARGE: Good. Vital signs are stable. Neurologic status is stable. DISCHARGE MEDICATIONS: Please see discharge medication form. FOLLOWUP: She will be discharged home. She does not need any further therapies at home. She will f ollow up with Dr. Tutu Fernandes as an outpatient in a couple of weeks. In the meantime, I have been a sked to start her on gabapentin and atorvastatin. Whether the patient will start these or not will b e determined. /[id number]/MODL
--- NOTE | 2018-05-30 15:48 | ASMTCMCOM ---
CM Note CM Note Notes: Pt medically stable for d/c with son Costa support. No CM d/c needs identified. Date Signed: 05/30/2018 03:48 PM Electronically Signed By:RIA Yap
--- NOTE | 2018-05-30 15:48 | ASMTLACE ---
LACE Length of stay for Answers: 2 days current admission Acuity / Level of Answers: No Care: Did the patient have an inpatient admission? Comorbidities - select Answers: Cerebrovascular disease all that apply (CVA, TIA, aneurysms, vasc ular dementia) # of Emergency department Answers: 1-2 visits in the last 6 months Score: 4 Date Signed: 05/30/2018 03:47 PM Electronically Signed By:RIA Yap
--- NOTE | 2018-05-30 17:29 | ECHO ---
[email or web address] [address] [address] Main: [phone] Fax: Transthoracic Echocardiogram Name: GLORY FRIAS MR#: [id number] Study Date: 05/30/2018 Study Time: 02:46 PM Date of : 1940 Age: 77 year(s) Height: 167.6 cm (66 in.) Weight: 65.77 kg (145 lb.) BSA: 1.74 m2 Gender: Female Examination: Complete Echo with Agitated Saline Indication: ?TIA Image Quality: Adequate Contrast: Requested by: Charleen Esparza BP: / Heart Rate: Rhythm: Indication: ?TIA Procedure Staff Director Group Sales: Vanita Lemus RD Reading Physician: Castro Salcedo MD Requesting Provider: Conclusions: Normal size left ventricle. Normal global systolic LV function. The ejection fraction is visually estimated to be 60 %. No regional wall motion abnormality. An agitated saline study was performed and was positive for intracardiac shunting. There are no significant valvular abnormalities. Doppler interrogation of the interatrial septum did not reveal any evidence of an ASD/ PFO. No apparent cardiac source for embolism. Measurements: Chambers Valvular Assessment AV/MV Valvular Assessment TV/PV Normal Normal Normal Name Value Range Name Value Range Name Value Range Ao Susie (2D): 2.2 cm (1.4 cm-2.6 AV Vmax: 1.47 m/s (1 m/s-1.7 TR Vmax: 2.28 mm/s ( - ) cm) m/s) TR PGmax: 21 mmHg ( - ) IVSd (2D): 1.0 cm (0.6 cm-1.1 AV maxP mmHg ( - ) syst. PAP: 26 mmHg ( - ) cm) AV meanP mmHg ( - ) PV Vmax: 0.77 m/s (0.6 m/s-0.9 LVDd (2D): 4.0 cm (3.9 cm-5.3 GEOVANI (VTI): 1.8 cm ( - ) m/s) cm) MV E Vmax: 0.52 m/s ( - ) PV PGmax: 2 mmHg ( - ) LVDs (2D): 2.8 cm (2.1 cm-4 MV A Vmax: 0.78 m/s ( - ) cm) MV E/A: 0.67 ( - ) LVPWd (2D): 0.9 cm ( - ) MV PHT: 0.091 s ( - ) LVOTd 1.9 cm 1.9 cm mm MVA (PHT): 2.4 s ( - ) LVEF (BP): 66 % (>=55 %) Visual EF: 60 % RVDd(2D): 2.4 cm (1.9 cm-3.8 cmmm) Continued Measurements: Chambers Valvular Assessment AV/MV Valvular Assessment TV/PV Patient: GLORY FRIAS Study Date: 05/30/2018 Page 1 of 2 02:46 PM Name Value Name Value Name Value LADs: 3.0 cm MV DecTime: 292 m/s CVP (est.): 5 mmHg LADs Lon.7 cm MV E' Septal: 0.07 m/s LA Area: 13.9 cm2 MV E/E' Septal: 7.60 LA Volume: 36 ml MV E/E' Lateral: 6.50 LA Volume Index: 20.7 ml/m2 RA Area: 14.7 cm2 Findings: Left Ventricle: Normal size left ventricle. No LV hypertrophy. Normal global systolic LV function. The ejection fraction is visually estimated to be 60 %. No regional wall motion abnormality. Right Ventricle: Normal size right ventricle. Normal RV function. Left Atrium: The left atrium is normal in size. An agitated saline study was performed and was positive for intracardiac shunting. Right Atrium: The right atrium is normal in size. Mitral Valve: The mitral valve is normal in appearance and function. Mild mitral valve regurgitation is present. No mitral stenosis is present. Aortic Valve: The aortic valve is tri-leaflet. No aortic valve stenosis is present. Aortic regurgitation is at least mild to moderate. Tricuspid Valve: The tricuspid valve is normal in appearance and function. Mild tricuspid regurgitation is present. The pulmonary artery pressure is normal. Right ventricular systolic pressure measures 26mmHg. Pulmonic Valve: The pulmonic valve is normal in appearance and function. There is no pulmonic regurgitation seen. Aorta: The aorta is normal. Normal size aortic root measuring 2.2 cm. IVC: The IVC is normal sized. Pericardium: No pericardial effusion. No pleural effusion. (No Signature Object) Patient: GLORY FRIAS Study Date: 05/30/2018 Page 2 of 2 02:46 PM [id number]
[2018-05-30] MEDS ORDERED: GABAPENTIN 300 MG CAP PO SCH (21:00)
[2018-05-31] MEDS ORDERED: ASPIRIN EC 81 MG TAB PO SCH (09:00)
== END 2018-05-30 16:33 | disposition home or self-care (01) ==
LOC: INTOOBSV 19:53 → F3N 20:45
PROVIDERS: ADMIT Internal Medicine; ATTEND Internal Medicine
DX: R20.2 Paresthesia of skin (principal); R20.0 Anesthesia of skin; R93.0 Abnormal findings on diagnostic imaging of skull and head, not elsewhere classified; H81.399 Other peripheral vertigo, unspecified ear; Z85.3 Personal history of malignant neoplasm of breast; Z92.3 Personal history of irradiation
CPT/HCPCS: 70450; 92523; 93005; 93306; 96372; 97161; 97165; 99285; G0378; G8978; G8979; G8980; G8987; G8988; G8989; G9165; G9166; J1650; 82435-PO; 82565-PO; 82947-PO; 84132-PO; 84295-PO; 84484-PO; 84520-PO; 85014-PO

== ENCOUNTER → 2018-07-25 | Outpatient (CLI) | payer OTHER, BC ==
--- NOTE | 2018-07-25 13:36 | CPEEG ---
DATE OF STUDY: 07/25/2018 INTERPRETATION: This EEG contains a mild degree of diffuse nonspecific slowing. These findings would be consistent with a mild diffuse disturbance of cerebral function. There were no definite potentially epileptogenic abnormalities present in the awake or sleep recordings. REPORT: This EEG contains 8-9 Hz alpha activity to the posterior head regions. There was a mild degree of diffuse theta slowing present in the background activity. During drowsiness, there was more prominent slowing over the bitemporal head regions, which can be a normal drowsy variant. There was no abnormal activation at rest, during hyperventilation or photic stimulation. The patient became drowsy and fell asleep during the study. There was no definite abnormal epileptiform activation during drowsiness, sleep or at times of arousal. /[id number]/MODL MTDD
== END ==
LOC: FCPNEURO 09:49
PROVIDERS: ATTEND Psychiatry & Neurology Neurology
DX: R20.2 Paresthesia of skin (principal)